=== PATIENT | male | born 1970 | race Caucasian/White ===

== ENCOUNTER 2019-10-14 10:58 | Emergency (ER) | payer OTHER, SELFPAY ==
[2019-10-14] VITALS (8 sets, daily range): BP systolic 116–126; BP diastolic 71–77; PULSE 67–85; RESP 15–20; TEMP 36.4; O2SAT 96–99; BMI 27.3
--- NOTE | 2019-10-14 11:58 | ED_ITS ---
Entered by Jovanna Dumont, acting as scribe for Adryan Fischer MD, [facility] [place] HPI - Chest Pain General: Chief Complaint: Chest Pain Stated Complaint: Chest pains/SOB Time Seen by Provider: 10/14/19 11:54 Source: patient Mode of arrival: ambulatory Limitations: no limitations History of Present Illness: HPI narrative: 48 yo Male presents to ED with complaint of chest pain. Pt states that his pain started when he woke up this morning. Pt states that he has had 3 previous heart attacks. 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 Pt's states that the patient has been coughing and does have a history of costochondritis. The patient takes Percocet for costochondritis. He does not take NSAIDs because of his cardiac history and being on warfarin. MD complaint: chest pain Pertinent past history: prior [place] Onset (ago): hour(s) Timing of current episode: constant and still present Prior episodes: Yes Onset: awoke with symptoms Pain location: substernal and left chest Pain radiation: back Quality: similar to prior [place] Relieving factors: nothing Exacerbating factors: inspiration Associated symptoms: Reports dyspnea; Deny abdominal pain, fever(s), nausea, palpitations or vomiting Treatment prior to arrival: aspirin Review of Systems General: Reports: 10 or more systems reviewed and unremarkable except in HPI and below Const: Denies: fever, chills or body aches Eyes: Denies: change in vision or blurry vision ENMT: Denies: throat pain, enlarged tonsils, painful swallowing, hoarseness, mouth pain or swelling of lips/tongue Card: Reports: chest pain; Denies: palpitations, irregular heart rhythm, edema or swelling of feet/ankles Resp: Reports: shortness of breath, non-productive cough and pain on inspiration; Denies: productive cough GI: Denies: abdominal pain, nausea or vomiting : Denies: flank pain, painful urination, urinary frequency, urinary urgency or urinary hesitancy Musc: Denies: neck pain, back pain or extremity swelling Skin/Breast: Denies: rash, itching or redness Neuro: Denies: headache, numbness in extremities or weakness in extremities Endo: Denies: excessive urination, excessive thirst or tired all the time PFSH ED PFSH: Family History Mother CAD (coronary artery disease) Grandmother CAD (coronary artery disease) Family/Other CAD (coronary artery disease) Social History Smoking and tobacco status: current every day smoker Alcohol intake: never Marital status: Physical Exam Const: COMMON NORMALS: no apparent distress, average body habitus, oriented x3, no limitations, healthy appearing, alert and well nourished HENMT: COMMON NORMALS: normocephalic, head/scalp atraumatic and moist oral mucous membranes HEAD & SCALP: normocephalic and atraumatic Eye: COMMON NORMALS: PERRL, EOMs intact bilaterally, conjunctivae normal and no scleral icterus CONJUNCTIVA: Yes conjunctivae normal PUPIL: Yes PERRL Neck/C-Spine: COMMON NORMALS: full ROM, supple, no meningeal signs, no JVD and no carotid bruits Chest: COMMONS NORMALS: inspection of chest normal and palpation of chest normal CHEST: Yes localized rib tenderness with anteroposterior compression Resp: COMMON NORMALS: normal respiratory effort, no retractions, no use of accessory muscles, clear to auscultation bilaterally and percussion normal AUSCULTATION: clear to auscultation bilaterally PERCUSSION: percussion normal Cardio: COMMON NORMALS: no JVD, regular rate, regular rhythm, S1 normal heart sound, S2 normal heart sound, no gallops, no clicks, no murmurs, no rub and peripheral pulses 2+ throughout RATE: regular rate RHYTHM: regular rhythm HEART SOUNDS: S1 normal and S2 normal PERIPHERAL PULSES: pulses 2+ throughout GI: COMMON NORMALS: normal to inspection, nondistended, normoactive bowel sounds, soft to palpation, non-tender, no hepatosplenomegaly, no masses and no bruits PALPATION: Yes soft and Yes no hepatosplenomegaly : COMMON NORMALS: Yes no CVA tenderness BLADDER/KIDNEY EXAM: Yes no CVA tenderness Back/Pelvis: COMMON NORMALS: no CVA tenderness Extremity: COMMON NORMALS: normal to inspection, full ROM, normal capillary refill, no calf tenderness and no pedal edema Neuro: COMMON NORMALS: oriented x3 SENSORIUM/ORIENTATION: Yes alert MENINGEAL SIGNS: Yes no meningeal signs Skin: COMMON NORMALS: no rashes or lesions noted, no wounds, skin turgor normal, no jaundice, no petechiae and no mottling GENERAL SKIN EXAM: no rashes or lesions noted and turgor normal Course Vital Signs: Vital signs: Vital Signs Temperature 97.5 F L 10/14/19 11:07 Pulse Rate 74 10/14/19 16:09 Respiratory Rate 16 10/14/19 16:09 Blood Pressure 117/73 10/14/19 16:09 Pulse Oximetry 98 10/14/19 16:09 MDM - Chest Pain MDM Narrative: Medical decision making narrative: 48-year-old male with a history of cardiac disease, coronary artery disease, mechanical valve placement, myomectomy for hypertrophic cardiomyopathy, costochondritis who presents to the emergency department with concerns of chest pain. On examination the patient has chest wall tenderness and his troponins were negative x2. The patient seems to have a low pain threshold required several doses of pain medication to obtain relief. He is discharged home on oral steroids for likely costochondritis and he is to follow-up with his primary care provider. He voiced understanding and he is in agreement with the plan. Medical Records: Attestation: I reviewed the patient's medical records. Lab Data: Attestation: I reviewed the patient's lab results. Labs: Lab Results 10/14/19 10/14/19 10/14/19 Range/Units 12:40 12:40 12:40 WBC 7.5 (4.0-10.0) 10^3/ uL RBC 5.12 (4.1-5.3) 10^6/u L Hgb 12.9 (11.7-16.6) g/dL Hct 41.1 L (42.0-52.0) % MCV 80.3 (80-94) fL MCH 25.2 L (28.0-34.0) pg MCHC 31.4 (30.0-36.0) g/dL RDW 15.5 H (12.1-15.1) % Plt Count 423 H (130-400) 10^3/c mm MPV 8.7 (7.4-10.4) fL Neut % (Auto) 62.2 % Lymph % (Auto) 25.9 % [place] % (Auto) 8.2 % Eos % (Auto) 2.0 % Baso % (Auto) 1.3 % Neut # (Auto) 4.7 (1.8-7.7) 10^3/u L Lymph # (Auto) 2.0 (0.8-4.8) 10^3/u L [place] # (Auto) 0.6 (0.2-0.9) 10^3/u L Eos # (Auto) 0.2 (0.0-0.8) 10^3/u L Baso # (Auto) 0.1 (0.0-0.1) 10^3/u L Nucleated RBC % (a uto) 0 % Nucleated RBCs # 0.0 /100WBC Sodium 136 (136-145) mmol/L Potassium 4.0 (3.5-5.1) mmol/L Chloride 100 (98-107) mmol/L Carbon Dioxide 23 (22-29) mmol/L Anion Gap 17.0 (5-19) BUN 10 (6-20) mg/dL Creatinine 0.8 (0.7-1.2) mg/dL GFR Calculation 102.3 (90-130) mL/min Glucose 135 H (65-115) mg/dL Calcium 10.5 (8.5-10.5) mg/dL Total Bilirubin 0.2 (0.15-1.2) mg/dL AST 22 (0-40) U/L ALT 10 (0-41) U/L Alkaline Phosphata se 64 (40-130) IU/L Troponin T Baselin e 10 (0-15) ng/mL Troponin T 120 Min tulalip (0-15) ng/mL Delta Troponin T (0-10) ABS# NT-Pro-B Natriuret Pep 193 H (0-125) pg/mL Total Protein 7.2 (6.6-8.7) g/dL Albumin 4.5 (3.5-5.2) g/dL Globulin 2.7 (1.3-4.6) g/dL Influenza Type A A g (Negative) POC Influenza B Ag (Negative) 10/14/19 10/14/19 Range/Units 12:45 14:35 WBC (4.0-10.0) 10^3/ uL RBC (4.1-5.3) 10^6/u L Hgb (11.7-16.6) g/dL Hct (42.0-52.0) % MCV (80-94) fL MCH (28.0-34.0) pg MCHC (30.0-36.0) g/dL RDW (12.1-15.1) % Plt Count (130-400) 10^3/c mm MPV (7.4-10.4) fL Neut % (Auto) % Lymph % (Auto) % [place] % (Auto) % Eos % (Auto) % Baso % (Auto) % Neut # (Auto) (1.8-7.7) 10^3/u L Lymph # (Auto) (0.8-4.8) 10^3/u L [place] # (Auto) (0.2-0.9) 10^3/u L Eos # (Auto) (0.0-0.8) 10^3/u L Baso # (Auto) (0.0-0.1) 10^3/u L Nucleated RBC % (a uto) % Nucleated RBCs # /100WBC Sodium (136-145) mmol/L Potassium (3.5-5.1) mmol/L Chloride (98-107) mmol/L Carbon Dioxide (22-29) mmol/L Anion Gap (5-19) BUN (6-20) mg/dL Creatinine (0.7-1.2) mg/dL GFR Calculation (90-130) mL/min Glucose (65-115) mg/dL Calcium (8.5-10.5) mg/dL Total Bilirubin (0.15-1.2) mg/dL AST (0-40) U/L ALT (0-41) U/L Alkaline Phosphata se (40-130) IU/L Troponin T Baselin e (0-15) ng/mL Troponin T 120 Min tulalip 10.32 (0-15) ng/mL Delta Troponin T 0.32 (0-10) ABS# NT-Pro-B Natriuret Pep (0-125) pg/mL Total Protein (6.6-8.7) g/dL Albumin (3.5-5.2) g/dL Globulin (1.3-4.6) g/dL Influenza Type A A g Negative (Negative) POC Influenza B Ag Negative (Negative) Imaging Data^: CXR: Radiologist's impression: [address] [address] XRay Report Signed Patient: José Barfield #: [id number] : 1970Acct#:[id number] Age/Sex: 48 / MADM Date: 10/14/19 Loc: ERRoom/Bed: Attending Dr: Ordering Provider/Ordering MD: Adryan Fischer MD, [facility] [place] Date of Service: 10/14/19 Procedure(s): XR chest 1V portable [id number] Accession Number(s): [id number] Report Number: [id number] WS: [id number] Portable AP upright chest, 10/14/2019 Clinical Data: Chest pain Comparison: Portable chest, 07/20/2019. Findings: No nodules, masses or effusions are seen. Midline sternotomy sutures and a aortic valve are noted. There is a pacemaker generator in the left axilla with the wires ending in the heart. Monitor leads on the chest wall. The heart is not enlarged. The pulmonary vascularity is not increased. No pneumonia or pneumothorax is present. The aortic arch is tortuous. XR/XR chest 1V portable [id number] Impression: Atherosclerosis, artificial heart valve and pacemaker unchanged. Dictated By:Barbara Fair MD Signed By:Barbara Fair MDSigned Date/Time:10/14/19 124 DD/ 1243 EKG Data^: EKG 1: Attestation: I personally reviewed and interpreted this EKG as follows: EKG interpretation date: 10/14/19 EKG interpretation time: 14:30 Prior EKG tracings: not available for review Interpretation: Paced rhythm. Ventricular rate 73 bpm. No acute findings. Pacemaker function: normal pacer function Discharge Plan Discharge Patient Disposition: Home, Self-Care Clinical Impression: Costalchondritis Condition: Stable Prescriptions: New prednisone 20 mg tablet 20 mg PO DAILY Qty: 5 RF: 0 Continued duloxetine [Cymbalta] 20 mg capsule,delayed release(DR/EC) 60 mg PO DAILY RF: 0 diltiazem HCl 120 mg capsule,extended release 24 hr 120 mg PO DAILY RF: 0 warfarin 4 mg tablet 4 mg PO .daily as directed RF: 0 gabapentin 600 mg tablet 600 mg PO .six times daily RF: 0 fenofibrate nanocrystallized 145 mg tablet 145 mg PO DAILY RF: 0 potassium chloride 10 mEq capsule, extended release 10 meq PO DAILY RF: 0 cholecalciferol (vitamin D3) 3,000 unit tablet 3,000 unit PO DAILY RF: 0 metformin 1,000 mg tablet,ER joelle.retention 24 hr 1,000 mg PO BID RF: 0 magnesium oxide 400 mg magnesium tablet 400 mg PO DAILY RF: 0 atorvastatin [Lipitor] 80 mg tablet 80 mg PO DAILY RF: 0 ferrous gluconate 324 mg (38 mg iron) tablet 324 mg PO BEDTIME RF: 0 metoprolol tartrate 100 mg tablet 100 mg PO BID RF: 0 chlorthalidone 25 mg tablet 25 mg PO DAILY RF: 0 Combivent Respimat 20-100 mcg/actuation mist 1 puff INHALATION QID RF: 0 pantoprazole 40 mg tablet,delayed release (DR/EC) 40 mg PO BID RF: 0 tizanidine 4 mg tablet 4 mg PO TID RF: 0 aspirin 325 mg Tablet 325 mg PO DAILY RF: 0 sucralfate 1 gram Tablet 1 g PO Q4D RF: 0 famotidine 20 mg Tablet 20 mg PO BID RF: 0 Flonase Allergy Relief 50 mcg/actuation [place],Suspension 2 spray INTRANASAL DAILY RF: 0 oxycodone 5 mg Tablet 5 mg PO Q6H PRN (Reason: Pain) RF: 0 Discharge Orders: Discharge Order (Routine); Ordered 10/14/19 Ordered By: Adryan Fischer Referrals: Alan Bruno MD [Referring] - 4-7 days Patient Instructions: Costochondritis (ED) Activity Restrictions/Additional Instructions: Return for any new or worsening symptoms. Follow-up with your primary care provider within 5 days. Take the medication as prescribed. Stand Alone Forms: Work/School Release Discharge Date/Time: 10/14/19 16:10 Coding Level of Care Code ED Medical Editor for Chg Fwd Exam Comprehensive The documentation recorded by the Tim tavarez Carmen, accurately reflects the service I personally performed and the decisions made by Aaliyah rojas Adegoke I, MD, [facility] [place] Oct 14, 2019 10:58
--- NOTE | 2019-10-14 12:07 | XR_ITS ---
WS: [id number] Portable AP upright chest, 10/14/2019 Clinical Data: Chest pain Comparison: Portable chest, 07/20/2019. Findings: No nodules, masses or effusions are seen. Midline sternotomy sutures and a aortic valve are noted. There is a pacemaker generator in the left axilla with the wires ending in the heart. Monitor leads on the chest wall. The heart is not enlarged. The pulmonary vascularity is not increased. No p neumonia or pneumothorax is present. The aortic arch is tortuous. XR/XR chest 1V portable [id number] Impression: Atherosclerosis, artificial heart valve and pacemaker unchanged.
--- NOTE | 2019-10-14 12:07 | ECG_ITS ---
Measurements Intervals [place] Rate: 88 P: 102 CA: 152 QRS: -57 QRSD: 197 T: 120 QT: 448 QTc: 543 ELECTRONIC ATRIAL PACEMAKER ELECTRONIC VENTRICULAR PACEMAKER ABNORMAL RHYTHM ECG Compared to ECG 07/18/2019 21:07:37 No significant changes Electronically Signed On 10-14-2019 19:44:29 CYBER CRIME INVESTIGATOR by Chapin Foreman M.D. [id number]
[2019-10-14] MEDS: morphine 4 mg/mL SDV 1 mL 10 MG IVP (12:43)
[2019-10-14] MEDS: ondansetron 2 mg/ML SDV 2 mL 4 MG IVP (12:44)
[2019-10-14 12:50] LABS: Basophils # 0.1 10^3/uL (0.0-0.1); Basophils % 1.3 %; Eosinophils # 0.2 10^3/uL (0.0-0.8); Hematocrit 41.1 % (42.0-52.0); Hemoglobin 12.9 g/dL (11.7-16.6); Lymphocytes % 25.9 %; Mean Corpuscular HGB Conc 31.4 g/dL (30.0-36.0); Mean Corpuscular Hemoglobin 25.2 pg (28.0-34.0); Mean Corpuscular Volume 80.3 fL (80-94); Mean Platelet Volume 8.7 fL (7.4-10.4); Monocytes # 0.6 10^3/uL (0.2-0.9); Monocytes % 8.2 %; Neutrophils # 4.7 10^3/uL (1.8-7.7); Neutrophils % 62.2 %; Nucleated Red Blood Cells % 0 %; Platelet Count 423 10^3/cmm (130-400); Red Blood Count 5.12 10^6/uL (4.1-5.3); Red Cell Distribution Width 15.5 % (12.1-15.1); White Blood Count 7.5 10^3/uL (4.0-10.0)
[2019-10-14 13:12] LABS: Troponin(5th) Baseline 10 ng/mL (0-15)
[2019-10-14 13:21] LABS: Alanine Aminotransferase 10 U/L (0-41); Albumin Level 4.5 g/dL (3.5-5.2); Alkaline Phosphatase 64 IU/L (40-130); Aspartate Amino Transferase 22 U/L (0-40); Blood Urea Nitrogen 10 mg/dL (6-20); Calcium 10.5 mg/dL (8.5-10.5); Carbon Dioxide 23 mmol/L (22-29); Chloride 100 mmol/L (98-107); Globulin 2.7 g/dL (1.3-4.6); Glomerular Filtration Rate 102.3 mL/min (90-130); Glucose 135 mg/dL (65-115); NT Pro B Type Natriuretic Pept 193 pg/mL (0-125); Sodium 136 mmol/L (136-145); Total Bilirubin 0.2 mg/dL (0.15-1.2); Total Protein 7.2 g/dL (6.6-8.7)
[2019-10-14] MEDS: fentaNYL 50 mcg/mL INJ 2mL IVP (13:40)
[2019-10-14 13:42] LABS: Influenza A by IFA Negative (Negative); Influenza B by IFA Negative (Negative)
--- NOTE | 2019-10-14 14:07 | ECG_ITS ---
Measurements Intervals [place] Rate: 73 P: 180 [place]: 154 QRS: -54 QRSD: 198 T: 131 QT: 481 QTc: 531 ELECTRONIC ATRIAL PACEMAKER ELECTRONIC VENTRICULAR PACEMAKER ABNORMAL RHYTHM ECG Compared to ECG 07/18/2019 21:07:37 No significant changes Electronically Signed On 10-14-2019 20:01:03 MEDICAL INSURANCE CLERK by Chapin Foreman M.D. [id number]
[2019-10-14] MEDS: HYDROmorphone 1 mg/mL INJ 1 mL IVP ×2 (14:28→15:43)
[2019-10-14 14:58] LABS: Troponin 5 2HR 10.32 ng/mL (0-15); Troponin 5 2HR Delta 0.32 ABS# (0-10)
== END 2019-10-14 16:10 | disposition home or self-care (01) ==
PROVIDERS: Emergency Provider Family Medicine
DX: M94.0 Chondrocostal junction syndrome [Tietze] (principal); I25.10 Atherosclerotic heart disease of native coronary artery without angina pectoris; I25.2 Old myocardial infarction; I42.2 Other hypertrophic cardiomyopathy; F17.200 Nicotine dependence, unspecified, uncomplicated; Z79.01 Long term (current) use of anticoagulants; Z79.82 Long term (current) use of aspirin; Z95.2 Presence of prosthetic heart valve; Z95.0 Presence of cardiac pacemaker; Z82.49 Family history of ischemic heart disease and other diseases of the circulatory system
CPT/HCPCS: 36415; 71045; 80053; 83880; 84484; 85025; 87804; 93005; 96374; 96375; 96376; 99283; 99284; J1170; J2270; J2405; J3010

== ENCOUNTER 2020-01-12 22:16 | Inpatient (IN) | payer OTHER, SELFPAY ==
[2020-01-12] VITALS (10 sets, daily range): BP systolic 97–122; BP diastolic 50–70; PULSE 73–85; RESP 14–21; O2SAT 94–97; BMI 26.6
--- NOTE | 2020-01-12 22:31 | XR_ITS ---
WS: [id number] PORTABLE CHEST HISTORY: CP COMPARISON: 10/14/2019 Status post CABG. Double lead LEFT subclavian pacer. Prior cardiac valve prosthesis placement. Chronic emphysema. No pneumonia. Normal vasculature. No pleural effusion or pneumothorax. Cardiac size: Mildly enlarged cardiac silhouette. Mediastinum/Aorta: Ectatic thoracic aorta. No osseous abnormality seen. XR/XR chest 1V portable [id number] IMPRESSION: 1. Prior sternotomy and prior valve replacement. 2. Mild emphysema.
--- NOTE | 2020-01-12 22:33 | ECG_ITS ---
Measurements Intervals [place] Rate: 75 P: 162 TX: 162 QRS: -51 QRSD: 201 T: 128 QT: 493 QTc: 553 ELECTRONIC ATRIAL PACEMAKER ELECTRONIC VENTRICULAR PACEMAKER ABNORMAL RHYTHM ECG Compared to ECG 10/14/2019 14:30:07 No significant changes Electronically Signed On 01-13-2020 22:04:26 CDT by Michelle García M.D. [id number]
[2020-01-12] MEDS: aspirin 325 mg Tablet PO (22:42)
[2020-01-12] MEDS: sodium chloride 0.9% 1,000 ML 100 ML IV (22:44)
--- NOTE | 2020-01-12 22:46 | ED_ITS ---
HPI - Chest Pain General: Chief Complaint: Chest Pain Stated Complaint: cp/sob Time Seen by Provider: 01/12/20 22:31 History of Present Illness: HPI narrative: Mr. Barfield is a 49-year-old male who comes in complaining of 2 complaints. His primary complaint is that of chest pain. He states it started at 6 PM tonight while he was at home at rest. He has associated shortness of breath, diaphoresis and nausea with this. He states the pain radiates straight through to his back. He states this pain is like when he had a heart attack in the past. He is tried nothing for this other than he took his daily aspirin. Patient states he cannot take nitro as he has been warned by his comprehensive advisor and primary physician not to do so. Patient second complaint is that of black tarry stools. Patient states he has epigastric pain as well and he fears that he has a bleed from that as he is having black tarry stools. He does have intermittent epigastric pain but states that his primary issue this evening is the chest pain. Patient does admit to being on Coumadin for both atrial fibrillation and a mechanical heart valve. Associated symptoms: Reports abdominal pain and nausea; Deny dyspnea, fever(s), palpitations, syncope or vomiting Review of Systems Const: Denies: fever(s), chills, body aches, fatigue, malaise or night sweats Eyes: Denies: change in vision, blurry vision or blind spots ENMT: Denies: throat pain, odynophagia, hoarseness, ear or mastoid pain, ear discharge, change in hearing or nasal discharge Card: Reports: chest pain; Denies: palpitations, irregular heart rhythm, lightheadedness, syncope, pre- syncope, dyspnea on exertion or orthopnea Resp: Denies: dyspnea, productive cough, non-productive cough, wheezing, hemoptysis or chest congestion GI: Reports: abdominal pain, nausea and melena; Denies: vomiting, hematemesis, coffee ground emesis, heartburn, diarrhea, constipation, GI cramping or hematochezia : Denies: flank pain, dysuria, urinary frequency, urinary urgency, oliguria, urinary incontinence or hematuria Musc: Denies: neck pain, back pain, extremity pain, extremity swelling, joint pain, joint swelling, joint redness, joint warmth or joint stiffness Skin/Breast: Denies: rash, pruritus, erythema, skin tenderness or jaundice Neuro: Denies: headache(s), numbness in extremities, weakness in extremities, sensory changes, lack of coordination, difficulty walking, dizziness, vertigo, confusion or Slurred speech present Endo: Denies: polyuria, polydipsia, tired all the time, cold intolerance, excessive sweating, flushing, hot flashes or heat intolerance Dontae/Lymph: Denies: easy bruising, easy bleeding, petechiae, purpura or enlarged lymph nodes All/Imm: Denies: urticaria, throat swelling, tongue swelling, facial swelling or acute wheezing PFSH ED PFSH: Medical History Atrial fibrillation Cardiomyopathy COPD (chronic obstructive pulmonary disease) Coronary artery disease recent PCI was in 02/06/2018 in [facility], was found to have high- grade lesion in the stented segment of the left and descending artery, there was a 50% lesion proximal LAD, lesser number of artery was found to have patent stented segment with 30% in-stent stenosis, right coronary artery had a 50% lesion in the mid segment, mild diffuse disease was noted in the PDA and PLV branches, the first diagonal branch was found to have 60% tandems lesions, he underwent PCI of the LAD lesion at that ti DM type 2 (diabetes mellitus, type 2) Gastritis Hyperlipidemia Hypertension Hypertrophic obstructive cardiomyopathy Low back pain Normal colonoscopy Diverticulosis 05/14/[address] Campo Peptic ulcer disease Valvular heart disease On Coumadin Surgical History H/O endoscopy 05/14/[address] Campo Grade B esophagitis Nonerosive gastritis in antrum 1 cm with partially healed ulcer in the antrum which was biopsied, normal duodenum H/O mitral valve replacement History of ventricular septal myectomy S/P cervical spinal fusion S/P placement of cardiac pacemaker Family History Mother CAD (coronary artery disease) Grandmother CAD (coronary artery disease) Family/Other CAD (coronary artery disease) Social History Smoking and tobacco status: former smoker Alcohol intake: never Marital status: Physical Exam Const: COMMON NORMALS: no acute distress, patient oriented x3, no limitations, healthy appearing and well nourished EXAM LIMITATIONS: no altered mental sta tus GENERAL APPEARANCE: cooperative, well kempt and well developed HENMT: COMMON NORMALS: normocephalic, atraumatic, hearing grossly normal bilaterally, external ears normal, EAC's normal, Normal external nose present and moist oral mucous membranes HEAD & SCALP: normal to inspection, normoc ephalic and atraumatic FACE & SINUS: normal facial exam and face symmetric NOSE: Normal external nose present and Normal nares present EXTERNAL EAR: Yes external ears normal EXTERNAL AUDITORY CANAL: EAC's normal MOUTH: Normal oral and palatal mucosa present, lip normal and tongue normal Eye: COMMON NORMALS: Equal, round and reactive pupils present, EOMs intact bilaterally, conjunctivae normal and no scleral icterus GENERAL EYE: appearance normal, both eyes and all related structures ALIGNMENT: Yes alignm ent normal PERIORBITAL: periorbital findings normal EYELID: eyelids normal CONJUNCTIVA: Yes conjunctivae normal SCLERA: sclerae normal PUPIL: Yes Equal, round and reactive pupils present Neck/C-Spine: COMMON NORMALS: full ROM, no lymphadenopathy, supple, no meningeal signs and no JVD GENERAL: Yes normal visual inspection and Yes trachea midline CERVICAL SPINE: Yes cervical ROM normal Chest: COMMONS NORMALS: normal inspection of the chest and normal palpation of entire chest wall Resp: COMMON NORMALS: normal respiratory effort, No retractions, No use of accessory muscles and clear to auscultation bilaterally EFFORT & INSPECTION: Yes able to speak in complete sentences AUSCULTATION: clear to auscultation bilaterally, no crackles, no rales, no rhonchi and no wheezes Cardio: COMMON NORMALS: no JVD, regular rate, regular rhythm, S1 normal heart sound present, S2 normal heart sound present, No gallops present (Cardio), No clicks present (Cardio), No murmurs present (Cardio) and No rub (Cardio) RATE: regular rate RHYTHM: regular rhythm HEART SOUNDS: S1 normal heart sound present, S2 normal heart sound present, no click, no gallops, no murmurs and no rubs GI: COMMON NORMALS: Soft to palpation, non-tender, No hepatosplenomegaly present and no masses PALPATION: Yes Soft to palpation, No Tenderness to palpation present (GI), No Guarding due to palpation present (GI), No Rigid due to palpation, Yes No hepatosplenomegaly present, No Hernia present, No Palpable mass present and No Pulsatile mass present : COMMON NORMALS: Yes no CVA tenderness BLADDER/KIDNEY EXAM: Yes no CVA tenderness Back/Pelvis: COMMON NORMALS: no CVA tenderness, thoracic and lumbar spine normal to inspection, no thoracic nor lumbar tenderness and thoraco-lumbar ROM normal Extremity: COMMON NORMALS: normal to inspection, full ROM, capillary refill normal, no joint enlargement, no clubbing, cyanosis or edema and no calf tenderness Neuro: COMMON NORMALS: patient oriented x3, CN's II-XII intact bilaterally, moves all extremities, no focal motor deficits and no sensory deficits noted MENINGEAL SIGNS: Yes no meningeal signs SPEECH: speech normal Psych: COMMON NORMALS: mental status grossly normal, Normal thought process present, cooperative, normal affect, speech normal and activity/motor behavior normal APPEARANCE: Yes well kempt SPEECH: Yes normal speech THOUGHT PROCESS: Normal thought process present Skin: COMMON NORMALS: no rashes or lesions noted, turgor normal, no jaundice, no petechiae and no mottling GENERAL SKIN EXAM: no rashes or lesions noted and turgor normal Course Vital Signs: Vital signs: Vital Signs Pulse Rate 73 01/13/20 01:05 Respiratory Rate 18 01/13/20 01:05 Blood Pressure 116/65 01/13/20 00:55 Pulse Oximetry 92 01/13/20 01:05 MDM - Chest Pain MDM Narrative: Medical decision making narrative: Mr. Barfield is a 49-year-old male who comes in with a complaint of chest pain and melanotic stools. This time his chest pain is gone with narcotics as he is declined nitroglycerin secondary to advised by his previous physicians. His hemoglobin is low at 9.9 but he is hemodynamically stable with a good heart rate and normal blood pressure. I discussed the case in full with Dr. Santana, on-call for cardiology. He recommends not reversing the INR at this time as the mechanical heart valve in the mitral position may cause significant problems if reversed. He shannan mmends letting the Coumadin wear off on its own and not reversing. He does not recommend giving blood at this time but discontinuing to watch the patient's hemoglobin. He is aware the patient is chest pain free at this time and his enzymes are normal and his EKG only shows paced rhythm. Have also reviewed the case with Dr. Melo who is agreeable to admission. He will come see the patient in the ER. Lab Data: Attestation: I reviewed the patient's lab results. Labs: Lab Results 01/12/20 01/12/20 01/12/20 Range/Units 22:45 22:45 22:45 WBC 11.7 H (4.0-10.0) 10^3/ uL RBC 4.10 (4.1-5.3) 10^6/u L Hgb 9.9 L (11.7-16.6) g/dL Hct 31.8 L (42.0-52.0) % MCV 77.6 L (80-94) fL MCH 24.1 L (28.0-34.0) pg MCHC 31.1 (30.0-36.0) g/dL RDW 16.2 H (12.1-15.1) % Plt Count 602 H (130-400) 10^3/c mm MPV 8.8 (7.4-10.4) fL Neut % (Auto) 64.4 % Lymph % (Auto) 23.9 % [place] % (Auto) 7.4 % Eos % (Auto) 1.9 % Baso % (Auto) 1.3 % Neut # (Auto) 7.5 (1.8-7.7) 10^3/u L Lymph # (Auto) 2.8 (0.8-4.8) 10^3/u L [place] # (Auto) 0.9 (0.2-0.9) 10^3/u L Eos # (Auto) 0.2 (0.0-0.8) 10^3/u L Baso # (Auto) 0.2 H (0.0-0.1) 10^3/u L Nucleated RBC % (a uto) 0 % Nucleated RBCs # 0.0 /100WBC PT (10.5-13.3) SECO NDS INR (0.8-1.2) Sodium 132 L (136-145) mmol/L Potassium 3.6 (3.5-5.1) mmol/L Chloride 90 L (98-107) mmol/L Carbon Dioxide 26 (22-29) mmol/L Anion Gap 19.6 H (5-19) BUN 18 (6-20) mg/dL Creatinine 1.3 H (0.7-1.2) mg/dL GFR Calculation 58.2 L (90-130) mL/min Glucose 143 H (65-115) mg/dL Calculated Osmolal ity 273 L (285-295) mOsm/k g Calcium 9.7 (8.5-10.5) mg/dL Magnesium 1.7 (1.7-2.3) mg/dL Total Bilirubin 0.2 (0.15-1.2) mg/dL AST 18 (0-40) U/L ALT 6 (0-41) U/L Alkaline Phosphata se 61 (40-130) IU/L Troponin T Baselin e 14 (0-15) ng/mL Total Protein 7.2 (6.6-8.7) g/dL Albumin 4.5 (3.5-5.2) g/dL Globulin 2.7 (1.3-4.6) g/dL Lipase 37 (13-60) U/L Blood Type Rho(D) Type Antibody Screen Crossmatch 01/12/20 01/12/20 Range/Units 22:45 23:40 WBC (4.0-10.0) 10^3/ uL RBC (4.1-5.3) 10^6/u L Hgb (11.7-16.6) g/dL Hct (42.0-52.0) % MCV (80-94) fL MCH (28.0-34.0) pg MCHC (30.0-36.0) g/dL RDW (12.1-15.1) % Plt Count (130-400) 10^3/c mm MPV (7.4-10.4) fL Neut % (Auto) % Lymph % (Auto) % [place] % (Auto) % Eos % (Auto) % Baso % (Auto) % Neut # (Auto) (1.8-7.7) 10^3/u L Lymph # (Auto) (0.8-4.8) 10^3/u L [place] # (Auto) (0.2-0.9) 10^3/u L Eos # (Auto) (0.0-0.8) 10^3/u L Baso # (Auto) (0.0-0.1) 10^3/u L Nucleated RBC % (a uto) % Nucleated RBCs # /100WBC PT 27.90 H (10.5-13.3) SECO NDS INR 2.50 H (0.8-1.2) Sodium (136-145) mmol/L Potassium (3.5-5.1) mmol/L Chloride (98-107) mmol/L Carbon Dioxide (22-29) mmol/L Anion Gap (5-19) BUN (6-20) mg/dL Creatinine (0.7-1.2) mg/dL GFR Calculation (90-130) mL/min Glucose (65-115) mg/dL Calculated Osmolal ity (285-295) mOsm/k g Calcium (8.5-10.5) mg/dL Magnesium (1.7-2.3) mg/dL Total Bilirubin (0.15-1.2) mg/dL AST (0-40) U/L ALT (0-41) U/L Alkaline Phosphata se (40-130) IU/L Troponin T Baselin e (0-15) ng/mL Total Protein (6.6-8.7) g/dL Albumin (3.5-5.2) g/dL Globulin (1.3-4.6) g/dL Lipase (13-60) U/L Blood Type O Positive Rho(D) Type Positive Antibody Screen Negative Crossmatch See Detail Imaging Data^: CXR: My impression: No acute cardiopulmonary findings. EKG Data^: EKG 1: Attestation: I personally reviewed and interpreted this EKG as follows: EKG interpretation date: 01/12/20 EKG interpretation time: 22:28 Interpretation: AV sequential pacemaker with a ventricular rate of 74 beats a minute, left bundle branch block pattern, 100% capture. Critical Care Time Critical Care Time: Critical Care Time: Yes Total Critical Care Time: 30 Attestation: Critical care time consisted of examination and reexamination of patient. Critical care time consisted of review of laboratory values, consultation with specialist by phone and reviewing adequate records. Discharge Plan Discharge Patient Disposition: Admitted As Inpatient Admit Provider: Nancy Melo Clinical Impression: Chest pain Qualifiers: Chest pain type: chest pain due to myocardial ischemia Ischemic chest pain type: unstable angina pectoris Qualified Code(s): I20.0 - Unstable angina GI bleeding Qualifiers: GI bleed type/associated pathology: melena Qualified Code(s): K92.1 - Melena Condition: Stable Coding Level of Care Code ED Bilingual Call Center Representative for [employer] Fwd Exam Comprehensive
[2020-01-12 23:02] LABS: Basophils # 0.2 10^3/uL (0.0-0.1); Basophils % 1.3 %; Eosinophils # 0.2 10^3/uL (0.0-0.8); Eosinophils % 1.9 %; Hematocrit 31.8 % (42.0-52.0); Hemoglobin 9.9 g/dL (11.7-16.6); Lymphocytes # 2.8 10^3/uL (0.8-4.8); Lymphocytes % 23.9 %; Mean Corpuscular HGB Conc 31.1 g/dL (30.0-36.0); Mean Corpuscular Hemoglobin 24.1 pg (28.0-34.0); Mean Corpuscular Volume 77.6 fL (80-94); Mean Platelet Volume 8.8 fL (7.4-10.4); Monocytes # 0.9 10^3/uL (0.2-0.9); Monocytes % 7.4 %; Neutrophils # 7.5 10^3/uL (1.8-7.7); Neutrophils % 64.4 %; Nucleated Red Blood Cells % 0 %; Platelet Count 602 10^3/cmm (130-400); Red Cell Distribution Width 16.2 % (12.1-15.1); White Blood Count 11.7 10^3/uL (4.0-10.0)
[2020-01-12 23:06] LABS: Alanine Aminotransferase 6 U/L (0-41); Albumin Level 4.5 g/dL (3.5-5.2); Alkaline Phosphatase 61 IU/L (40-130); Anion Gap 19.6 (5-19); Aspartate Amino Transferase 18 U/L (0-40); Blood Urea Nitrogen 18 mg/dL (6-20); Calcium 9.7 mg/dL (8.5-10.5); Carbon Dioxide 26 mmol/L (22-29); Chloride 90 mmol/L (98-107); Globulin 2.7 g/dL (1.3-4.6); Glomerular Filtration Rate 58.2 mL/min (90-130); Glucose 143 mg/dL (65-115); Lipase 37 U/L (13-60); Magnesium 1.7 mg/dL (1.7-2.3); Osmolality Calculated 273 mOsm/kg (285-295); Potassium 3.6 mmol/L (3.5-5.1); Sodium 132 mmol/L (136-145); Total Bilirubin 0.2 mg/dL (0.15-1.2); Total Protein 7.2 g/dL (6.6-8.7)
[2020-01-12] MEDS: morphine 4 mg/mL SDV 1 mL IVP (23:08)
[2020-01-12] MEDS: ondansetron 2 mg/ML SDV 2 mL 4 MG IVP (23:09)
[2020-01-12] MEDS: pantoprazole 40 MG in sodium chloride 0.9% (plus) 100 ML 20 MG IV (23:09)
[2020-01-12] MEDS: pantoprazole 40 mg SDV 80 MG IVP (23:09)
[2020-01-12] MEDS: lactated ringers 1,000 ML 150 ML IV (23:10)
[2020-01-12 23:11] LABS: Troponin(5th) Baseline 14 ng/mL (0-15)
[2020-01-12] MEDS: HYDROmorphone 1 mg/mL INJ 1 mL 0.5 MG IVP (23:26)
--- NOTE | 2020-01-12 23:42 | PM.HP ---
Providers/Chief Complaint Chief Complaint: cp/sob History of Present Illness José Barfield is a 49 year old male with a past medical history of CAD status post stenting x5, mitral valve disease status post mechanical mitral valve replacement, pacemaker in place for third-degree AV block, hypertrophic obstructive cardiomyopathy status post myomectomy, chronic atrial fibrillation, chronic obstructive pulmonary disease, [id number] type 2 diabete mellitus, GI bleed, hypertension, hyperlipidemia, who presents to the emergency room due to complaints of chest pain. Patient is stating that for last 1 week he has been experiencing dark stools, he has not noticed any fresh bright bleed per rectum, he has been taking Coumadin and aspirin, is feeling tired and lethargic, no syncopal event or loss of consciousness, today when he was watching television with his around 6 PM he started experiencing epigastric discomfort which he is describing as severe burning sensation radiating towards his left side of neck. It gets worse on taking deep breaths, he is denying fever, recent flulike symptoms, traveling, contact to COVID person. He is endorsing nausea, diaphoresis, radiation of pain towards his back. He has had 4-5 episodes of loose stools, mostly with loose stools he gets epigastric burning sensation. His epigastric burning sensation gets worse on laying supine. His last EGD done by Dr. Campo revealed nonerosive gastritis, I have checked biopsy report which showed negative H. pylori and inflammatory epithelial cells Colonoscopy revealed diverticulosis Patient is stating that 6 inches of colon was removed because of diverticulitis and abscess formation in the past Currently he is hemodynamically stable, he is complaining of back pain which is responsive to analgesic, he is reluctant to use nitrate because of cardiomyopathy history, diagnostics in the ER revealed low hemoglobin 9.9, EKG shows paced rhythm, troponin not significantly high, Will admit him to ICU, hold medication and start Protonix General surgery contacted by the ER Review of Systems Const: Denies: fever(s) or chills Eyes: Denies: change in vision ENMT: Denies: throat pain or uvular edema Card: Reports: chest pain and dyspnea on exertion; Denies: palpitations, irregular heart rhythm, edema, swelling of feet/ankles, lightheadedness or syncope Resp: Denies: dyspnea GI: Reports: abdominal pain, nausea, heartburn and diarrhea : Denies: flank pain or urinary frequency Musc: Denies: neck pain Skin/Breast: Denies: rash Neuro: Denies: headache(s) Psych: Reports: anxiety Endo: Denies: polyuria Dontae/Lymph: Denies: easy bruising All/Imm: Denies: urticaria Medications/Allergies Home Medications Medication Instructions Recorded Confirmed Last Taken Type atorvastatin 80 mg tablet 80 mg PO DAILY tab 08/22/19 10/14/19 10/13/19 History chlorthalidone 25 mg tablet 25 mg PO DAILY tab 08/22/19 10/14/19 10/14/19 History cholecalciferol (vitamin D3) 75 3,000 unit PO DAILY tab 08/22/19 10/14/19 10/14/19 History mcg (3,000 unit) tablet diltiazem HCl 120 mg capsule,24 120 mg PO DAILY 08/22/19 10/14/19 10/14/19 History hr,extended release duloxetine 20 mg capsule,delayed 60 mg PO DAILY cap 08/22/19 10/14/19 10/14/19 History release fenofibrate nanocrystallized 145 145 mg PO DAILY tab 08/22/19 10/14/19 10/13/19 History mg tablet ferrous gluconate 324 mg (38 mg 324 mg PO BEDTIME tab 08/22/19 10/14/19 10/13/19 History iron) tablet gabapentin 600 mg tablet 600 mg PO .six times daily tab 08/22/19 10/14/19 10/14/19 History ipratropium 20 mcg-albuterol 100 1 puff INHALATION QID 08/22/19 10/14/19 Unknown History mcg/actuation mist for inhalation magnesium oxide 400 mg PO DAILY tab 08/22/19 10/14/19 10/14/19 History metformin 1,000 mg 24 hr 1,000 mg PO BID 08/22/19 10/14/19 10/14/19 History tablet,extended release metoprolol tartrate 100 mg tablet 100 mg PO BID 08/22/19 10/14/19 10/14/19 History pantoprazole 40 mg tablet,delayed 40 mg PO BID 08/22/19 10/14/19 10/14/19 History release potassium chloride 10 mEq 10 meq PO DAILY cap 08/22/19 10/14/19 10/14/19 History capsule,extended release tizanidine 4 mg tablet 4 mg PO TID tab 08/22/19 10/14/19 10/14/19 History warfarin 4 mg tablet 4 mg PO .daily as directed tab 08/22/19 10/14/19 10/14/19 History Flonase Allergy Relief 2 spray INTRANASAL DAILY 10/14/19 10/14/19 10/14/19 History aspirin 325 mg PO DAILY 10/14/19 10/14/19 10/14/19 History famotidine 20 mg PO BID 10/14/19 10/14/19 10/14/19 History oxycodone 5 mg PO Q6H PRN 10/14/19 10/14/19 10/13/19 History prednisone 20 mg PO DAILY #5 tab 10/14/19 Unknown Rx sucralfate 1 g PO Q4D 10/14/19 10/14/19 10/14/19 History Allergies Allergy/AdvReac Type Severity Reaction Status Date / Time bupropion [From Wellbutrin] Allergy Unknown Unknown Verified 08/22/19 09:45 metoclopramide [From Reglan] Allergy Unknown unknown Verified 08/22/19 09:44 prochlorperazine Allergy Unknown Unknown Verified 08/22/19 09:44 simvastatin Allergy Unknown unknown Verified 08/22/19 09:44 tramadol Allergy ALGY-Hives Verified 10/14/19 11:15 PFSH Acute PFSH: Medical History Atrial fibrillation Cardiomyopathy COPD (chronic obstructive pulmonary disease) Coronary artery disease recent PCI was in 02/06/2018 in [facility], was found to have high-grade lesion in the stented segment of the left and descending artery, there was a 50% lesion proximal LAD, lesser number of artery was found to have patent stented segment with 30% in-stent stenosis, right coronary artery had a 50% lesion in the mid segment, mild diffuse disease was noted in the PDA and PLV branches, the first diagonal branch was found to have 60% tandems lesions, he underwent PCI of the LAD lesion at that ti DM type 2 (diabetes mellitus, type 2) Gastritis Hyperlipidemia Hypertension Hypertrophic obstructive cardiomyopathy Low back pain Normal colonoscopy Diverticulosis 05/14/[address] Campo Peptic ulcer disease Valvular heart disease On Coumadin Surgical History H/O endoscopy 05/14/[address] Campo Grade B esophagitis Nonerosive gastritis in antrum 1 cm with partially healed ulcer in the antrum which was biopsied, normal duodenum H/O mitral valve replacement History of ventricular septal myectomy S/P cervical spinal fusion S/P placement of cardiac pacemaker Family History Mother CAD (coronary artery disease) Grandmother CAD (coronary artery disease) Family/Other CAD (coronary artery disease) Social History Smoking and tobacco status: former smoker Alcohol intake: never Marital status: Vitals/I&O/Wt Last Vital Signs Pulse 78 01/12/20 23:33 Resp 16 01/12/20 23:33 BP 97/50 01/12/20 23:33 Pulse Ox 94 01/12/20 23:33 Weight last 48 hrs Weight 81.647 kg Physical Exam Narrative: EXAM NARRATIVE: Head to toe examination Patient laying in semi-patterson position Normal hemodynamics EOMI, PERRLA Alert 20?3, GCS 15 Paced rhythm, systolic murmur grade 2/6 No signs of active heart failure Abdomen soft, nontender, bowel sound present, no signs of peritonitis No radio radial delay Lungs are clear to auscultation without adventitious sounds, No active restaurant distress No signs of ischemia gangrene or ulcer Dorsalis pedis pulses 2+ bilaterally Mild pallor positive Pertinent negative No hemodynamic instability No signs of peritonitis No active bright bleed per rectum No radio radial delay Data : 01/12/20 22:45 01/12/20 22:45 A&P Assessment and plan (1) Melanotic stools: Status: Acute (2) GI bleeding: Status: Acute (3) Mechanical heart valve present: Status: Acute (4) Cardiomyopathy: Status: Acute (5) Hypertrophic obstructive cardiomyopathy: Status: Acute (6) DM type 2 (diabetes mellitus, type 2): Status: Acute (7) Peptic ulcer disease: Status: Acute Additional A&P Information Acute microcytic blood loss anemia due to GI bleed Melanotic stool, patient has underlying history of peptic ulcer disease/esophagitis and gastritis Baseline hemoglobin 11-13, current hemoglobin 9.9 He takes aspirin and Coumadin I would avoid reversing Coumadin effect for now, no active hemodynamic instability, will keep PRBC on standby, Protonix 40 mg IV twice daily, n.p.o., Last EGD report and colonoscopy report reviewed General surgery Dr. Marlow consulted Admit to ICU Atypical chest pain Chest pain is reproducible, paced rhythm on EKG, troponin not significantly high, chest pain is being described as epigastric burning Would use GI cocktail, hold aspirin and Coumadin for now, not a candidate to be on anticoagulation because of active GI bleed I believe his symptoms are secondary to heart strain secondary to anemia with underlying history of cardiomyopathy Serial EKGs and troponins, monitoring ICU Since patient is status post myomectomy I would go ahead and use nitrate, for now he has been responding well to opioids Mechanical mitral valve Hold Coumadin, current INR 2.5 No hemodynamic stability or active GI bleed, hold off on reversing Coumadin effect with FFP or PCC Patient was counseled regarding risk of stroke and why Coumadin was being held, he expressed understanding and his questions were answered to his satisfaction Type 2 diabetes: Accu-Cheks every 6 hours, I would use normal saline for fluid resuscitation to support preload for now DVT prophylaxis: SCDs not a candidate for anticoagulation because of GI bleed N.p.o. Full code Attestations Medical Necessity Statement*: Needs ICU for melanotic stool and atypical chest pain monitoring, anticipating stay in the hospital course more than 2 midnights, patient has complex cardiac history Time Spent in Patient Care: 50 Coding Level of Care Code Acute Retail Account Manager for [facility] Fwd Diagnoses Melanotic stools K92.1 GI bleeding K92.2 Mechanical heart valve present Z95.2 Cardiomyopathy I42.9 Hypertrophic obstructive cardiomyopathy I42.1 DM type 2 (diabetes mellitus, type 2) E11.9 Peptic ulcer disease K27.9
[2020-01-13] VITALS (219 sets, daily range): BP systolic 84–184; BP diastolic 45–156; PULSE 65–128; RESP 4–43; TEMP 36.6–36.8; O2SAT 81–100
[2020-01-13] MEDS: morphine 4 mg/mL SDV 1 mL IVP (00:23)
--- NOTE | 2020-01-13 00:33 | ECG_ITS ---
Measurements Intervals [place] Rate: 68 P: 0 [place]: 192 QRS: -51 QRSD: 173 T: 124 QT: 483 QTc: 517 ELECTRONIC ATRIAL PACEMAKER ELECTRONIC VENTRICULAR PACEMAKER ABNORMAL RHYTHM ECG WARNING: DATA QUALITY MAY AFFECT INTERPRETATION Compared to ECG 10/14/2019 14:30:07 No significant changes Electronically Signed On 01-13-2020 22:13:29 CDT by Michelle García M.D. [email or web address]
[2020-01-13] MEDS: lidocaine 2% viscous 15 ML, aluminum-mag hydrox-simethicon 30 ML, sucralfate oral liq 1 GM PO (00:34)
[2020-01-13 00:45] LABS: Urine Appearance Clear (CLEAR); Urine Color Yellow (Yellow)
[2020-01-13 00:46] LABS: Bacteria Urine TRACE; Bilirubin Urine Neg (NEGATIVE); Blood Urine Neg (Negative); Glucose Urine UA Norm (Normal); Ketones Urine Negative (Negative); Leukocyte Esterase Urine Negative (Negative); Nitrate Urine Negative (Negative); Protein Urine Neg (Negative); RBC Urine RARE /hpf (0-2); Specific Gravity, Urine 1.015 (1.005-1.030); Squamous Epithelial Cell Urine RARE (0-5); Sulfosalicylic Acid Urine Negative (Negative); Urobilinogen Urine Norm (Negative); WBC Urine RARE /hpf (0-5); pH Urine 8 (5-7)
[2020-01-13 01:25] LABS: Ferritin 19 ng/mL (30-400); Iron 93 ug/dL (59-158)
[2020-01-13 01:27] LABS: Troponin 5 2HR 13.11 ng/mL (0-15)
[2020-01-13 01:29] LABS: Troponin 5 2HR Delta -0.89 ABS# (0-10)
--- NOTE | 2020-01-13 01:30 | PC.NURSE ---
Admit Note Arrived from ER via rony at this time. Pt pleasant alert and oriented X 4. Breathing even and non-labored on room air. Continues to complain of CP 7/10 and reports extension of pain into neck and upper back. Describes pain as a pressure and burning. Pt is AV paced. Heart sounds click from mechanical valve. Lungs diminished throughout. Skin is dry, pink, and pulses palpable throughout. Nurse at bedside completing admission at this time.
--- NOTE | 2020-01-13 02:15 | PC.NURSE ---
Cigarettes Pack of cigarettes without sighter found at bedside. Pt educated on oxygen safety and policy of [facility] Rem[place] cigarettes from bedside and locked in pyxis. Pt verbalized understanding.
[2020-01-13] MEDS: HYDROmorphone 1 mg/mL INJ 1 mL 2 MG IVP ×9 (02:16→23:28)
--- NOTE | 2020-01-13 02:48 | PC.NURSE ---
O2 saturation Decreased O2 saturation after administration of dilaudid. Pt arouses easily to verbal stimulation, encouraged deep breaths. O2 saturation 84% on room air. Placed on 2L, saturation now 99%.
--- NOTE | 2020-01-13 04:33 | ECG_ITS ---
Measurements Intervals [place] Rate: 65 P: 240 MI: 158 QRS: -52 QRSD: 209 T: 139 QT: 526 QTc: 551 ELECTRONIC ATRIAL PACEMAKER ELECTRONIC VENTRICULAR PACEMAKER ABNORMAL RHYTHM ECG Compared to ECG 10/14/2019 14:30:07 No significant changes Electronically Signed On 01-13-2020 22:12:57 CDT by Michelle García M.D. [email or web address]
[2020-01-13 05:21] LABS: Basophils # 0.1 10^3/uL (0.0-0.1); Basophils % 1.1 %; Eosinophils # 0.2 10^3/uL (0.0-0.8); Eosinophils % 1.5 %; Hematocrit 28.2 % (42.0-52.0); Hemoglobin 8.5 g/dL (11.7-16.6); Lymphocytes # 2.7 10^3/uL (0.8-4.8); Lymphocytes % 26.3 %; Mean Corpuscular HGB Conc 30.1 g/dL (30.0-36.0); Mean Corpuscular Hemoglobin 24.4 pg (28.0-34.0); Mean Corpuscular Volume 80.8 fL (80-94); Mean Platelet Volume 8.7 fL (7.4-10.4); Monocytes # 0.8 10^3/uL (0.2-0.9); Monocytes % 7.9 %; Neutrophils # 6.3 10^3/uL (1.8-7.7); Neutrophils % 61.9 %; Nucleated Red Blood Cells % 0 %; Platelet Count 466 10^3/cmm (130-400); Red Blood Count 3.49 10^6/uL (4.1-5.3); Red Cell Distribution Width 16.3 % (12.1-15.1); White Blood Count 10.2 10^3/uL (4.0-10.0)
[2020-01-13 05:49] LABS: INR 2.93 (0.8-1.2)
[2020-01-13 06:00] LABS: Troponin 5 6HR 13.05 ng/mL (0-15)
--- NOTE | 2020-01-13 06:01 | PM.CONSULT ---
Providers/Reason For Consult Consulting Physican/Specialty*: Kelby Marlow MD Reason for Consult*: Melena Attending Physician: Nancy Melo MD History of Present Illness History of Present Illness Chief Complaint: Black stools HPI This pleasant 49 years old gentleman with multiple medical comorbidities include: CAD status post stenting x5, mitral valve disease status post mechanical mitral valve replacement, pacemaker in place for third-degree AV block, hypertrophic obstructive cardiomyopathy status post myomectomy, chronic atrial fibrillation, chronic obstructive pulmonary disease, aui-[id number]-[id number] type 2 diabete mellitus, GI bleed, hypertension, hyperlipidemia, who presents to the emergency room due to complaints of chest pain. Patient reports that he had black stool over the past 1 week or so and he had an EGD done by my partner Dr. Campo April 2019 and was found to have nonerosive gastritis noted in the antrum with 1 cm partially healed ulcer in the antrum as well was biopsied which showed benign finding and was tested negative for H. pylori. Patient does have mechanical valve and is on Coumadin with a current INR of 2.9, been admitted on the hospitalist service for resuscitation and general surgery was consulted for potential intervention Review of Systems General: Reports: 10 or more systems reviewed and unremarkable except in HPI and below Meds/Allergies Home Medications and Allergies Home Medications Medication Instructions Recorded Confirmed Last Taken Type atorvastatin 80 mg tablet 80 mg PO BEDTIME tab 08/22/19 01/13/20 01/12/20 20:00 History chlorthalidone 25 mg tablet 25 mg PO DAILY tab 08/22/19 01/13/20 01/12/20 History cholecalciferol (vitamin D3) 75 3,000 unit PO DAILY tab 08/22/19 01/13/20 01/12/20 History mcg (3,000 unit) tablet diltiazem HCl 120 mg capsule,24 120 mg PO DAILY 08/22/19 01/13/20 01/12/20 History hr,extended release duloxetine 20 mg capsule,delayed 60 mg PO DAILY cap 08/22/19 01/13/20 01/12/20 History release fenofibrate nanocrystallized 145 145 mg PO BEDTIME tab 08/22/19 01/13/20 01/12/20 History mg tablet ferrous gluconate 324 mg (38 mg 324 mg PO BEDTIME tab 08/22/19 01/13/20 01/12/20 History iron) tablet gabapentin 600 mg tablet 600 mg PO BID tab 08/22/19 01/13/20 01/12/20 History magnesium oxide 400 mg PO DAILY tab 08/22/19 01/13/20 01/12/20 History metoprolol tartrate 100 mg tablet 100 mg PO BID 08/22/19 01/13/20 01/12/20 20:00 History potassium chloride 10 mEq 10 meq PO DAILY cap 08/22/19 01/13/20 01/12/20 History capsule,extended release tizanidine 4 mg tablet 4 mg PO BID tab 08/22/19 01/13/20 01/12/20 History warfarin 4 mg tablet 4 mg PO .daily as directed tab 08/22/19 01/13/20 01/12/20 20:00 History aspirin 325 mg PO DAILY 10/14/19 01/13/20 01/12/20 17:00 History famotidine 20 mg PO BID 10/14/19 01/13/20 01/12/20 History oxycodone 5 mg PO Q6H PRN 10/14/19 01/13/20 10/13/19 History sucralfate 1 g PO QID 10/14/19 01/13/20 01/12/20 History metformin 1,000 mg PO BID 01/13/20 01/13/20 01/12/20 18:00 History warfarin See Rx Instructions .ROUTE .COMPLEX 01/13/20 01/13/20 01/11/20 History Allergies Allergy/AdvReac Type Severity Reaction Status Date / Time bupropion [From Wellbutrin] Allergy Unknown Unknown Verified 08/22/19 09:45 metoclopramide [From Reglan] Allergy Unknown unknown Verified 08/22/19 09:44 prochlorperazine Allergy Unknown Unknown Verified 08/22/19 09:44 simvastatin Allergy Unknown unknown Verified 08/22/19 09:44 tramadol Allergy ALGY-Hives Verified 10/14/19 11:15 Current Medications Current Medications Generic Name Dose Route Start Last Admin Trade Name Freq PRN Reason Stop Dose Admin Hydromorphone HCl 2 mg 01/13/20 02:01 01/13/20 02:16 Dilaudid Inj IVP 2 mg Q2H PRN Administration PAIN Sodium Chloride 1,000 mls @ 100 mls/hr 01/12/20 22:45 05/25/20 22:44 Sodium Chloride 0.9% IV 100 mls/hr .Q10H BRIANDA Administration Lactated Ringer's 1,000 mls @ 150 mls/hr 01/12/20 22:45 01/12/20 23:10 Lactated Ringers IV 150 mls/hr .Q6H40M BRIANDA Administration PFSH Acute PFSH: Medical History Atrial fibrillation Cardiomyopathy COPD (chronic obstructive pulmonary disease) Coronary artery disease recent PCI was in 02/06/2018 in [facility], was found to have high-grade lesion in the stented segment of the left and descending artery, there was a 50% lesion proximal LAD, lesser number of artery was found to have patent stented segment with 30% in-stent stenosis, right coronary artery had a 50% lesion in the mid segment, mild diffuse disease was noted in the PDA and PLV branches, the first diagonal branch was found to have 60% tandems lesions, he underwent PCI of the LAD lesion at that ti DM type 2 (diabetes mellitus, type 2) Gastritis Hyperlipidemia Hypertension Hypertrophic obstructive cardiomyopathy Low back pain Normal colonoscopy Diverticulosis 05/14/[address] Campo Peptic ulcer disease Valvular heart disease On Coumadin Surgical History H/O endoscopy 05/14/[address] Campo Grade B esophagitis Nonerosive gastritis in antrum 1 cm with partially healed ulcer in the antrum which was biopsied, normal duodenum H/O mitral valve replacement History of ventricular septal myectomy S/P cervical spinal fusion S/P placement of cardiac pacemaker Family History Mother CAD (coronary artery disease) Grandmother CAD (coronary artery disease) Family/Other CAD (coronary artery disease) Social History Smoking and tobacco status: former smoker Alcohol intake: never Marital status: Vitals/I&O/Wt Last Vital Signs Temp 98.3 F 01/13/20 01:30 Pulse 66 01/13/20 04:00 Resp 15 01/13/20 04:00 BP 115/73 05/26/20 04:00 Pulse Ox 98 01/13/20 04:00 01/12/20 01/12/20 01/13/20 14:59 22:59 06:59 Intake Total 90 / 90 Output Total 450 / 450 Balance -360 / -360 Weight last 48 hrs Weight 180 lb Physical Exam Narrative: EXAM NARRATIVE: Patient is conscious alert oriented X3 BMI 27 Head and neck examination PERRLA no masses no cervical lymphadenopathy no jaundice Cardiac examination audible mechanical valve Chest is clear bilateral,abscence of Rhonchi or wheezes,no surgical emphysema Abdomen nontender nondistended soft no organomegaly guarding or rigidity/no signs of peritonitis Extremities no cyanosis no clubbing no edema A&P Assessment and plan (1) GI bleeding: After thorough history taking physical examination and reviewing the chart and further counseling the discussing with Dr. Ornelas the hospitalist, will plan to perform a diagnostic EGD at some point, likely when the INR is towards 2, as any intervention now carries high risk of bleeding with an INR of 2.9. Close observation of the patient Risk benefits has been discussed with the patient with regard to his cardiac condition potential bleed and invasive intervention and the risk of resuming anticoagulation in the presence of potential bleeding source. We will continue coordinating with the cardiac and hospitalist services Assurance and education All questions have been answered and all concerns have been addressed to patient's satisfaction. Status: Acute Qualifiers: GI bleed type/associated pathology: melena Qualified Code(s): K92.1 - Melena Consult Attestations Medical Necessity Statement: Per hospitalist service Time Spent in Patient Care: (>than 50% of time spent in counselling and/or direct pt care on unit). Coding Level of Care Code Acute Dobie Man for [facility] Fwd Diagnoses GI bleeding K92.1 GI bleed type/associated pathology: melena
[2020-01-13 06:02] LABS: Troponin 5 6HR Delta -0.95 ng/L (0-12)
[2020-01-13 06:20] LABS: Anion Gap 15.4 (5-19); Blood Urea Nitrogen 18 mg/dL (6-20); Calcium 8.7 mg/dL (8.5-10.5); Carbon Dioxide 25 mmol/L (22-29); Chloride 99 mmol/L (98-107); Glomerular Filtration Rate 70.6 mL/min (90-130); Glucose 99 mg/dL (65-115); Osmolality Calculated 277 mOsm/kg (285-295); Potassium 4.4 mmol/L (3.5-5.1); Sodium 135 mmol/L (136-145)
[2020-01-13] MEDS: sodium chloride 0.9% 1,000 ML 100 ML IV ×2 (06:23→16:39)
[2020-01-13 07:26] LABS: Glucose Point of Care 93 mg/dL (70-110)
--- NOTE | 2020-01-13 07:31 | PC.NURSE ---
states pain in chest is worsened with deep breath.
[2020-01-13 09:10] LABS: Hematocrit 29.9 % (42.0-52.0)
[2020-01-13 12:15] LABS: Glucose Point of Care 91 mg/dL (70-110)
--- NOTE | 2020-01-13 12:21 | PM.PN ---
Subjective Subjective: Interval history: Patient states that he continues to have some abdominal pain this morning, feels hungry, really wants to eat, no repeat bloody or black stools, no hemoptysis, no fevers, no chills, no lightheadedness, no dizziness Of note patient has had multiple admissions in 2019 for GI bleed, patient had an EGD by Dr. Campo in April 2019, had a gastric ulcer biopsy negative negative for malignancy, esophageal ulcer biopsy negative for malignancy, and a colonoscopy Patient takes Coumadin for anticoagulation, given his mitral valve replacement, his INR is typically between 2.5-3.5, typical doses between 2 to 4 mg of Coumadin Vitals/I&O/Wt Last Vital Signs Temp 98.1 F 01/13/20 07:45 Pulse 72 01/13/20 10:25 Resp 11 L 01/13/20 10:25 BP 141/89 01/13/20 10:25 Pulse Ox 96 01/13/20 10:25 01/12/20 01/13/20 01/13/20 22:59 06:59 14:59 Intake Total 855 / 855 Output Total 450 / 450 650 / 650 Balance 405 / 405 -650 / -650 Weight last 48 hrs Weight 81.647 kg Physical Exam Const: COMMON NORMALS: no acute distress and patient oriented x3 HENMT: COMMON NORMALS: normocephalic HEAD & SCALP: normocephalic Neck/C-Spine: COMMON NORMALS: no JVD Resp: COMMON NORMALS: normal respiratory effort, No retractions, No use of accessory muscles and clear to auscultation bilaterally AUSCULTATION: clear to auscultation bilaterally Cardio: COMMON NORMALS: no JVD, regular rate, regular rhythm, S1 normal heart sound present and S2 normal heart sound present RATE: regular rate RHYTHM: regular rhythm HEART SOUNDS: S1 normal heart sound present and S2 normal heart sound present GI: COMMON NORMALS: Normal to inspection, nondistended, normoactive bowel sounds present, No hepatosplenomegaly present, no masses and no bruits PALPATION: Yes Tenderness to palpation present (GI) and Yes No hepatosplenomegaly present Extremity: COMMON NORMALS: capillary refill normal, no clubbing, cyanosis or edema, no calf tenderness and no pedal edema Neuro: COMMON NORMALS: patient oriented x3 Psych: COMMON NORMALS: mental status grossly normal Data : 01/13/20 08:48 01/13/20 05:07 A&P Assessment and plan (1) Melanotic stools: Status: Acute (2) GI bleeding: Status: Acute Qualifiers: GI bleed type/associated pathology: melena Qualified Code(s): K92.1 - Melena (3) Mechanical heart valve present: Status: Acute (4) Cardiomyopathy: Status: Acute (5) Hypertrophic obstructive cardiomyopathy: Status: Acute (6) DM type 2 (diabetes mellitus, type 2): Status: Acute (7) Peptic ulcer disease: Status: Acute Additional A&P Information Acute microcytic blood loss anemia due to GI bleed Melanotic stool, patient has underlying history of peptic ulcer disease/esophagitis and gastritis Baseline hemoglobin 11-13, current hemoglobin 9.0 He takes aspirin and Coumadin I would avoid reversing Coumadin effect for now, no active hemodynamic instability, will keep PRBC on standby, Protonix 40 mg IV twice daily, n.p.o., Last EGD report and colonoscopy shows gastric ulcer negative for malignancy, esophageal ulcer negative for malignancy, normal colonoscopy 2 units of PRBC on hold Monitor vitals closely, monitor for bloody or black stools, monitor for hematemesis General surgery Dr. Marlow consulted Admit to ICU Atypical chest pain Chest pain is reproducible, paced rhythm on EKG, troponin not significantly high, chest pain is being described as epigastric burning Would use GI cocktail, hold aspirin and Coumadin for now, not a candidate to be on anticoagulation because of active GI bleed I believe his symptoms are secondary to heart strain secondary to anemia with underlying history of cardiomyopathy Serial EKGs and troponins, monitoring ICU Since patient is status post myomectomy I would go ahead and use nitrate, for now he has been responding well to opioids Mechanical mitral valve Hold Coumadin, current INR 2.5 No hemodynamic stability or active GI bleed, hold off on reversing Coumadin effect with FFP or PCC Patient was counseled regarding risk of stroke and why Coumadin was being held, he expressed understanding and his questions were answered to his satisfaction Type 2 diabetes: Accu-Cheks every 6 hours, I would use normal saline for fluid resuscitation to support preload for now DVT prophylaxis: SCDs not a candidate for anticoagulation because of GI bleed N.p.o. 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
[2020-01-13] MEDS: pantoprazole 40 mg SDV IVP ×3 (12:56→23:17)
[2020-01-13 13:34] LABS: Hematocrit 29.6 % (42.0-52.0); Hemoglobin 8.6 g/dL (11.7-16.6)
[2020-01-13 17:07] LABS: Glucose Point of Care 151 mg/dL (70-110)
[2020-01-13 17:21] LABS: Hematocrit 29.5 % (42.0-52.0); Hemoglobin 8.5 g/dL (11.7-16.6)
[2020-01-13] MEDS: ondansetron 2 mg/ML SDV 2 mL 4 MG IVP (19:43)
[2020-01-13 20:33] LABS: Hematocrit 27.8 % (42.0-52.0); Hemoglobin 8.2 g/dL (11.7-16.6)
[2020-01-14] VITALS (23 sets, daily range): BP systolic 112–168; BP diastolic 61–92; PULSE 84–114; RESP 12–27; TEMP 36.8–36.9; O2SAT 86–100
[2020-01-14 00:43] LABS: Hematocrit 28.6 % (42.0-52.0); Hemoglobin 8.3 g/dL (11.7-16.6)
[2020-01-14] MEDS: lanolin oint 7 gm 1 APPLIC TOPICAL (00:49)
[2020-01-14] MEDS: HYDROmorphone 1 mg/mL INJ 1 mL 2 MG IVP ×4 (01:45→13:11)
[2020-01-14] MEDS: sodium chloride 0.9% 1,000 ML 100 ML IV ×2 (02:31→10:47)
[2020-01-14 03:49] LABS: Basophils # 0.1 10^3/uL (0.0-0.1); Basophils % 0.9 %; Eosinophils # 0.3 10^3/uL (0.0-0.8); Eosinophils % 2.4 %; Hematocrit 27.8 % (42.0-52.0); Hemoglobin 8.2 g/dL (11.7-16.6); Lymphocytes # 1.8 10^3/uL (0.8-4.8); Lymphocytes % 16.9 %; Mean Corpuscular HGB Conc 29.5 g/dL (30.0-36.0); Mean Corpuscular Hemoglobin 23.8 pg (28.0-34.0); Mean Corpuscular Volume 80.6 fL (80-94); Mean Platelet Volume 8.8 fL (7.4-10.4); Monocytes # 0.8 10^3/uL (0.2-0.9); Monocytes % 7.6 %; Neutrophils # 7.6 10^3/uL (1.8-7.7); Neutrophils % 71.7 %; Nucleated Red Blood Cells % 0 %; Platelet Count 512 10^3/cmm (130-400); Red Blood Count 3.45 10^6/uL (4.1-5.3); Red Cell Distribution Width 16.4 % (12.1-15.1); White Blood Count 10.5 10^3/uL (4.0-10.0)
[2020-01-14 04:25] LABS: Alanine Aminotransferase < 5 U/L (0-41); Albumin Level 3.9 g/dL (3.5-5.2); Alkaline Phosphatase 51 IU/L (40-130); Anion Gap 14.3 (5-19); Aspartate Amino Transferase 18 U/L (0-40); Blood Urea Nitrogen 10 mg/dL (6-20); Calcium 8.7 mg/dL (8.5-10.5); Carbon Dioxide 26 mmol/L (22-29); Chloride 103 mmol/L (98-107); Creatinine Clr Calc Pharmacy 116.0072; Globulin 2.8 g/dL (1.3-4.6); Glomerular Filtration Rate 101.9 mL/min (90-130); Glucose 122 mg/dL (65-115); Magnesium 1.7 mg/dL (1.7-2.3); Osmolality Calculated 285 mOsm/kg (285-295); Phosphorus 3.8 mg/dL (2.5-4.5); Potassium 4.3 mmol/L (3.5-5.1); Sodium 139 mmol/L (136-145); Total Bilirubin 0.2 mg/dL (0.15-1.2); Total Protein 6.7 g/dL (6.6-8.7)
[2020-01-14 07:27] LABS: Glucose Point of Care 117 mg/dL (70-110)
[2020-01-14 08:56] LABS: Hematocrit 30.4 % (42.0-52.0)
[2020-01-14 09:33] LABS: INR 2.54 (0.8-1.2)
[2020-01-14] MEDS: morphine 4 mg/mL SDV 1 mL 1 MG IVP (09:33)
[2020-01-14] MEDS: pantoprazole 40 mg SDV IVP (09:33)
[2020-01-14] MEDS: oxyCODONE-APAP 5-325 mg Tablet 1 TAB PO ×2 (10:12→16:18)
[2020-01-14] MEDS: tizanidine 4 mg Tablet PO (10:45)
[2020-01-14 11:56] LABS: Glucose Point of Care 119 mg/dL (70-110)
--- NOTE | 2020-01-14 12:50 | P.PN_ITS ---
Subjective Subjective: Interval history: Morning patient complains of neck pain, back pain, chest pain, states that the oxycodone does not help, the muscle relaxer does not help, he can eat anything, states that if the EGD is not done today he really wants to go home, does not see the point in staying in the hospital Vitals/I&O/Wt Last Vital Signs Temp 98.2 F 01/14/20 10:00 Pulse 113 H 01/14/20 12:00 Resp 17 01/14/20 12:00 BP 142/73 01/14/20 12:00 Pulse Ox 94 01/14/20 12:00 01/13/20 01/14/20 01/14/20 22:59 06:59 14:59 Intake Total 1480 / 2080 1036.667 / 3116.667 826.667 / 826.667 Output Total 1475 / 3025 900 / 3925 1100 / 1100 Balance 5 / -945 136.667 / -808.333 -273.333 / -273.333 Weight last 48 hrs Weight 81.647 kg Physical Exam Const: COMMON NORMALS: no acute distress and patient oriented x3 HENMT: COMMON NORMALS: normocephalic HEAD & SCALP: normocephalic Neck/C-Spine: COMMON NORMALS: no JVD Resp: COMMON NORMALS: normal respiratory effort, No retractions, No use of accessory muscles and clear to auscultation bilaterally AUSCULTATION: clear to auscultation bilaterally Cardio: COMMON NORMALS: no JVD, regular rate, regular rhythm, S1 normal heart sound present and S2 normal heart sound present RATE: regular rate RHYTHM: regular rhythm HEART SOUNDS: S1 normal heart sound present and S2 normal heart sound present GI: COMMON NORMALS: Normal to inspection, nondistended, normoactive bowel sounds present, Soft to palpation, non-tender, No hepatosplenomegaly present, no masses and no bruits PALPATION: Yes Soft to palpation and Yes No hepatosplenomegaly present Extremity: COMMON NORMALS: capillary refill normal, no clubbing, cyanosis or edema, no calf tenderness and no pedal edema Neuro: COMMON NORMALS: patient oriented x3 Psych: COMMON NORMALS: mental status grossly normal Data : 01/14/20 08:45 01/14/20 03:35 A&P Assessment and plan (1) Melanotic stools: Status: Acute (2) GI bleeding: Status: Acute Qualifiers: GI bleed type/associated pathology: melena Qualified Code(s): K92.1 - M franco (3) Mechanical heart valve present: Status: Acute (4) Cardiomyopathy: Status: Acute (5) Hypertrophic obstructive cardiomyopathy: Status: Acute (6) DM type 2 (diabetes mellitus, type 2): Status: Acute (7) Peptic ulcer disease: Status: Acute Additional A&P Information Acute microcytic blood loss anemia due to GI bleed Melanotic stool, patient has underlying history of peptic ulcer disease/esophagitis and gastritis Baseline hemoglobin 11-13, current hemoglobin 9.0 He takes aspirin and Coumadin I would avoid reversing Coumadin effect for now, no active hemodynamic instability, will keep PRBC on standby, Protonix 40 mg IV twice daily, n.p.o., Last EGD report and colonoscopy shows gastric ulcer negative for malignancy, esophageal ulcer negative for malignancy, normal colonoscopy 2 units of PRBC on hold Monitor vitals closely, monitor for bloody or black stools, monitor for hematemesis Hemoglobin stable at 9, no repeat bloody or black stools INR was 2.5, at this point will wait until INR down trends, hopefully less than 2.2 tomorrow, and will reconsider doing an EGD tomorrow morning, patient understands our rationale, is agreeable to stay another night General surgery Dr. Marlow consulted Admit to ICU Atypical chest pain Chest pain is reproducible, paced rhythm on EKG, troponin not significantly high, chest pain is being described as epigastric burning Would use GI cocktail, hold aspirin and Coumadin for now, not a candidate to be on anticoagulation because of active GI bleed I believe his symptoms are secondary to heart strain secondary to anemia with underlying history of cardiomyopathy Serial EKGs and troponins, monitoring ICU Since patient is status post myomectomy I would go ahead and use nitrate, for now he has been responding well to opioids Continue home oxycodone, Dilaudid 2 mg every 8 hours as needed for breakthrough pain Mechanical mitral valve Hold Coumadin, current INR 2.5 No hemodynamic stability or active GI bleed, hold off on reversing Coumadin effect with FFP or PCC Patient was counseled regarding risk of stroke and why Coumadin was being held, he expressed understanding and his questions were answered to his satisfaction Type 2 diabetes: Accu-Cheks every 6 hours, I would use normal saline for fluid resuscitation to support preload for now DVT prophylaxis: SCDs not a candidate for anticoagulation because of GI bleed Continue clear liquid, n.p.o. 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
[2020-01-14 16:39] LABS: Glucose Point of Care 116 mg/dL (70-110)
--- NOTE | 2020-01-14 17:34 | PM.EVENT ---
Event Note Event Note: This morning patient threatened to leave AGAINST MEDICAL ADVICE, stated that he was in a lot of pain, and that his home oxycodone, and tizanidine are not helping, patient has been using Dilaudid 2 mg every 2 hours quite frequently for the last 24 hours. I was able to compromise with patient and I changed him to Dilaudid 2 mg every 8 hours, but patient stated that he was still in pain. The plan was to keep an eye on the patient's hemoglobin for the next 24 hours, keep an eye on his INR, monitor for bloody or black stools, continue to monitor his hemodynamics in ICU, plan for EGD tomorrow. Patient continued to complain of pain, complained that he was on a clear liquid diet. This afternoon patient wanted to leave AGAINST MEDICAL ADVICE, stated that he was in a lot of pain, he had his ride ready to go. Patient was advised of his risk of significant morbidity and more mortality, risk of , risk of significant GI bleed, risk of hemorrhagic shock, risk of stroke, risk of intracranial bleed, and that I would not give any further recommendations as he is leaving against AGAINST MEDICAL ADVICE. Patient voiced understanding, all questions answered, patient's left AMA.
--- NOTE | 2020-01-14 17:42 | PC.NURSE ---
AMA Patient left AMA, IVs removed. AMA paperwork signed and patient made aware of known risks and the need to stay for further tests and treatment. Patient stated he understood the risks of mortality and continued to stated that we are not doing anything for him if he could not get his pain medication . Patient escorted to ER entrance via wheelchair with all belongings. Patient stated his was coming to get him.
--- NOTE | 2020-01-14 18:50 | PM.DCS ---
Discharge Providers Date of Admission: 01/12/20 23:48 Date of Discharge: January 14, 2020 Attending Provider at Admission: Nancy Melo MD Attending Provider at Discharge: Emery Mcdonough MD Diagnoses at Discharge Discharge Diagnosis (1) Melanotic stools: Status: Acute (2) GI bleeding: Status: Acute Qualifiers: GI bleed type/associated pathology: melena Qualified Code(s): K92.1 - Melena (3) Mechanical heart valve present: Status: Acute (4) Cardiomyopathy: Status: Acute (5) Hypertrophic obstructive cardiomyopathy: Status: Acute (6) DM type 2 (diabetes mellitus, type 2): Status: Acute (7) Peptic ulcer disease: Status: Acute Reason for Visit Reason for Visit: Reason For Visit: cp/sob Hospital Course Discharge Summary: Patient left AGAINST MEDICAL ADVICE on 01/14/2020 This is a 49-year-old male with a past medical history of mechanical mitral heart valve on Coumadin, CAD status post stenting x5, pacemaker in place for third-degree AV block, hypertrophic obstructive cardiomyopathy status post myomectomy, chronic atrial fibrillation, type 2 diabetes mellitus, peptic ulcer disease on Protonix and Carafate, history of GI bleed, hypertension, hyperlipidemia COPD, who presents [facility] due to complaints of who presents to [facility] due to complaints of atypical chest pain and dark stools For his atypical chest pain, chest pain was reproducible, paced rhythm on EKG, 6-hour troponin was 13.05, delta was 0.95, pain was thought to be related to epigastric pain, improved with Dilaudid, refused to take morphine, refused to take tramadol, in 24 hours he used 26 mg of Dilaudid; when patient was switched back to his oxycodone, he became very frustrated, angry, his pain returned, and he said his pain would only improve with intermittent pushes of Dilaudid, patient continued to have complaints of pain, complaints of neck pain, back pain, not improving with his home oxycodone, tizanidine, only Dilaudid would help. I compromised with patient, reduced patient's Dilaudid dose to 2 mg every 8 hours, instead of 2 mg every 2 hours, but patient continued to have pain, in the afternoon patient left AGAINST MEDICAL ADVICE In the past patient had an EGD and colonoscopy which showed a gastric ulcer negative for malignancy, esophageal ulcer negative for malignancy, normal colonoscopy roughly [address] Campo. Patient was on aspirin, and Coumadin for his CAD, and mechanical mitral valve replacement. Patient was admitted to the ICU, for concerns for upper GI bleed, Dr. Marlow was consulted, there were plans on doing a EGD when patient's INR was between 2-2.2, patient was medically managed, hemoglobin was monitored, received Protonix, IV fluids, kept n.p.o. patient's hemoglobins remained stable between 8 and 9, remained hemodynamically stable, no repeat bloody or black stools, INR slowly trended down, anticoagulants were held. We avoided reversing Coumadin's affect, given patient's mechanical mitral valve, he has a high risk of stroke, and as patient remained hemodynamically stable, hemoglobin remained stable, there was no immediate need. Nonetheless there was 2 units of blood on hold just in case he were to have significant bleeding. The morning of 01/14/2020, patient's hemoglobin was 9, INR was 2.5, patient's hemodynamics remained stable, no bloody or black stools, decision was made with Dr. Marlow to plan for EGD tomorrow morning once INR was below 2.2. However patient was a bit frustrated, but understood our rationale of postponing his EGD, as there was no urgent need. But patient remained frustrated about his neck pain, back pain, his hunger, and about being in the hospital. He was switched to clear liquid diet, but his neck pain, back pain, hunger, and frustration only grew. As above his pain medications were changed back to his home medications he became much more agitated. This morning patient threatened to leave AGAINST MEDICAL ADVICE, stated that he was in a lot of pain, and that his home oxycodone, and tizanidine are not helping, patient has been using Dilaudid 2 mg every 2 hours quite frequently for the last 24 hours. I was able to compromise with patient and I changed him to Dilaudid 2 mg every 8 hours, but patient stated that he was still in pain. The plan was to keep an eye on the patient's hemoglobin for the next 24 hours, keep an eye on his INR, monitor for bloody or black stools, continue to monitor his hemodynamics in ICU, plan for EGD tomorrow. Patient continued to complain of pain, complained that he was on a clear liquid diet. This afternoon patient wanted to leave AGAINST MEDICAL ADVICE, stated that he was in a lot of pain, he had his ride ready to go. Patient was advised of his risk of significant morbidity and more mortality, risk of , risk of significant GI bleed, risk of hemorrhagic shock, risk of stroke, risk of intracranial bleed, and that I would not give any further recommendations as he is leaving against AGAINST MEDICAL ADVICE. Patient voiced understanding, all questions answered, patient's left AMA. Discharge Data Data Completed and Pending: Completed Studies During Hospitalization Category Date Time Status XR chest 1V leonard ble [id number] Stat Exams 01/12/20 22:31 Completed Pending at discharge Category Date Time Status Leukocyte Reduced RBC Routine Lab 01/12/20 23:40 Results Type and Screen R outine Lab 01/12/20 23:40 Results Labs from last 24 hours 01/14/20 01/14/20 01/14/20 16:26 11:17 08:45 WBC RBC Hgb Hct MCV MCH MCHC RDW Plt Count MPV Neut % (Auto) Lymph % (Auto) Stanley % (Auto) Eos % (Auto) Baso % (Auto) Neut # (Auto) Lymph # (Auto) Stanley # (Auto) Eos # (Auto) Baso # (Auto) Nucleated RBC % (a uto) Nucleated RBCs # PT 28.20 H INR 2.54 H Sodium Potassium Chloride Carbon Dioxide Anion Gap BUN Creatinine GFR Calculation Glucose POC Glucose 116 119 Calculated Osmolal ity Calcium Phosphorus Magnesium Total Bilirubin AST ALT Alkaline Phosphata se Total Protein Albumin Globulin Crossmatch 01/14/20 01/14/20 01/14/20 08:45 07:23 03:35 WBC RBC Hgb 9.0 L Hct 30.4 L MCV MCH MCHC RDW Plt Count MPV Neut % (Auto) Lymph % (Auto) Stanley % (Auto) Eos % (Auto) Baso % (Auto) Neut # (Auto) Lymph # (Auto) Stanley # (Auto) Eos # (Auto) Baso # (Auto) Nucleated RBC % (a uto) Nucleated RBCs # PT INR Sodium 139 Potassium 4.3 Chloride 103 Carbon Dioxide 26 Anion Gap 14.3 BUN 10 Creatinine 0.8 GFR Calculation 101.9 Glucose 122 H POC Glucose 117 Calculated Osmolal ity 285 Calcium 8.7 Phosphorus 3.8 Magnesium 1.7 Total Bilirubin 0.2 AST 18 ALT < 5 Alkaline Phosphata se 51 Total Protein 6.7 Albumin 3.9 Globulin 2.8 Crossmatch 01/14/20 01/14/20 01/13/20 03:35 00:25 20:23 WBC 10.5 H RBC 3.45 L Hgb 8.2 L 8.3 L 8.2 L Hct 27.8 L 28.6 L 27.8 L MCV 80.6 MCH 23.8 L MCHC 29.5 L RDW 16.4 H Plt Count 512 H MPV 8.8 Neut % (Auto) 71.7 Lymph % (Auto) 16.9 Stanley % (Auto) 7.6 Eos % (Auto) 2.4 Baso % (Auto) 0.9 Neut # (Auto) 7.6 Lymph # (Auto) 1.8 Stanley # (Auto) 0.8 Eos # (Auto) 0.3 Baso # (Auto) 0.1 Nucleated RBC % (a uto) 0 Nucleated RBCs # 0.0 PT INR Sodium Potassium Chloride Carbon Dioxide Anion Gap BUN Creatinine GFR Calculation Glucose POC Glucose Calculated Osmolal ity Calcium Phosphorus Magnesium Total Bilirubin AST ALT Alkaline Phosphata se Total Protein Albumin Globulin Crossmatch 01/12/20 23:40 WBC RBC Hgb Hct MCV MCH MCHC RDW Plt Count MPV Neut % (Auto) Lymph % (Auto) Stanley % (Auto) Eos % (Auto) Baso % (Auto) Neut # (Auto) Lymph # (Auto) Stanley # (Auto) Eos # (Auto) Baso # (Auto) Nucleated RBC % (a uto) Nucleated RBCs # PT INR Sodium Potassium Chloride Carbon Dioxide Anion Gap BUN Creatinine GFR Calculation Glucose POC Glucose Calculated Osmolal ity Calcium Phosphorus Magnesium Total Bilirubin AST ALT Alkaline Phosphata se Total Protein Albumin Globulin Crossmatch See Detail Vitals: Last Vital Signs Temp 98.2 F 01/14/20 10:00 Pulse 88 01/14/20 16:00 Resp 18 01/14/20 16:18 BP 166/76 01/14/20 16:00 Pulse Ox 93 01/14/20 16:00 Discharge Plan Discharge Patient Disposition: Left Against Medical Advice Condition: Stable Prescriptions: No Action duloxetine [Cymbalta] 20 mg capsule,delayed release(DR/EC) 60 mg PO DAILY RF: 0 diltiazem HCl 120 mg capsule,extended release 24 hr 120 mg PO DAILY RF: 0 warfarin 4 mg tablet 4 mg PO .daily as directed RF: 0 gabapentin 600 mg tablet 600 mg PO BID RF: 0 fenofibrate nanocrystallized 145 mg tablet 145 mg PO BEDTIME RF: 0 potassium chloride 10 mEq capsule, extended release 10 meq PO DAILY RF: 0 cholecalciferol (vitamin D3) 3,000 unit tablet 3,000 unit PO DAILY RF: 0 magnesium oxide 400 mg magnesium tablet 400 mg PO DAILY RF: 0 atorvastatin [Lipitor] 80 mg tablet 80 mg PO BEDTIME RF: 0 ferrous gluconate 324 mg (38 mg iron) tablet 324 mg PO BEDTIME RF: 0 metoprolol tartrate 100 mg tablet 100 mg PO BID RF: 0 chlorthalidone 25 mg tablet 25 mg PO DAILY RF: 0 tizanidine 4 mg tablet 4 mg PO BID RF: 0 metformin 1,000 mg Tablet 1,000 mg PO BID RF: 0 warfarin 2 mg Tablet See Rx Instructions .ROUTE .COMPLEX RF: 0 aspirin 325 mg Tablet 325 mg PO DAILY RF: 0 sucralfate 1 gram Tablet 1 g PO QID RF: 0 famotidine 20 mg Tablet 20 mg PO BID RF: 0 oxycodone 5 mg Tablet 5 mg PO Q6H PRN (Reason: Pain) RF: 0 Discharge Date/Time: 01/14/20 17:46 Discharge Attestations Time Spent in Discharge Care*: less than 30 min Quality Metrics Clinical Quality Measures During this hospital stay, did patient experience: None Coding Level of Care Code 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
== END 2020-01-14 17:46 | disposition left against medical advice (07) | DRG 378 ==
LOC: ER 22:41 → ICU 23:58
PROVIDERS: Admitting Provider Internal Medicine; Emergency Provider Emergency Medicine; Visit Provider Family Medicine
DX: K92.2 Gastrointestinal hemorrhage, unspecified (principal); D62 Acute posthemorrhagic anemia; I48.20 Chronic atrial fibrillation, unspecified; I42.9 Cardiomyopathy, unspecified; I25.10 Atherosclerotic heart disease of native coronary artery without angina pectoris; Z95.5 Presence of coronary angioplasty implant and graft; Z95.2 Presence of prosthetic heart valve; Z95.0 Presence of cardiac pacemaker; J44.9 Chronic obstructive pulmonary disease, unspecified; E11.9 Type 2 diabetes mellitus without complications; I10 Essential (primary) hypertension; E78.5 Hyperlipidemia, unspecified; K57.90 Diverticulosis of intestine, part unspecified, without perforation or abscess without bleeding; Z90.49 Acquired absence of other specified parts of digestive tract; M54.5 Low back pain; Z79.01 Long term (current) use of anticoagulants; Z98.1 Arthrodesis status; Z87.891 Personal history of nicotine dependence; Z53.29 Procedure and treatment not carried out because of patient's decision for other reasons; Z87.11 Personal history of peptic ulcer disease
CPT/HCPCS: 12345; 36415; 36416; 71045; 80048; 80053; 81001; 82728; 82962; 83540; 83690; 83735; 84100; 84484; 85014; 85018; 85025; 85610; 86850; 86900; 86920; 93005; 96375; 99284; C9113; J1170; J2270; J2405; J7030; J7050

== ENCOUNTER → 2020-03-17 11:03 | Outpatient (BNVA) | payer OTHER, SELFPAY | PROVIDERS: Visit Provider Internal Medicine Cardiovascular Disease | DX: Z95.2 Presence of prosthetic heart valve (principal) | CPT/HCPCS: 85610 ==